=== PATIENT | female | born 2000 | race Caucasian/White ===

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

== ENCOUNTER 2020-01-26 22:30 | Emergency (ER) | payer OTHER ==
[~2020-01-26] VITALS: Ht 165.1 cm; Wt 59.0 kg
[2020-01-26 22:42] VITALS: BP 112/70
--- NOTE | 2020-01-26 22:45 | NUR ---
PT AMBULATED TO BED 1 WITH STEADY GAIT.
--- NOTE | 2020-01-26 22:50 | NUR ---
19 Y/O FEMALE PRESENTS TO ER WITH C/O FEVER, LBP, DYSURIA X 4 DAYS. 5/10 PAIN. PT IS 15 WEEKS , LMP 10/20. PT STATES SHE HAS HAD FEVER X 2 DAYS, AND NAUSEA, AND VOMITING FOR DURATION OF . BUT DENIES CHILLS, SOB, COUGH, HEADACHES, DIARRHEA OR KNOWN CONTACT WITH COVID POSITIVE PERSONS. R/R EQUAL, AND UNLABORED, VSS. SIDE RAIL X1, BED IN LOW POSITION, WILL CONTINUE TO MONITOR. DENIES PMH NKDA
[2020-01-26] MEDS ORDERED: ONDANSETRON 4 MG ODT PO ONE (23:05)
[2020-01-26] MEDS ORDERED: ACETAMINOPHEN 325 MG TAB PO ONE (23:05)
[2020-01-26 23:30] LABS: APPEARANCE,URINE CLOUDY (CLEAR); COLOR,URINE YELLOW (YELLOW)
[2020-01-26 23:31] LABS: BILIRUBIN,URINE NEGATIVE (NEGATIVE); BLOOD, URINE 2+ (NEGATIVE); LEUKOCYTE ESTERASE ,URINE 3+ (NEGATIVE); NITRITE, URINE POSITIVE (NEGATIVE); PH,URINE 6.5 (5.0-9.0); UGLUCOSE NEGATIVE (NEGATIVE)
[2020-01-26 23:32] LABS: WBC,URINE TOO MANY TO COUNT /HPF (0-5)
[2020-01-26] MEDS ORDERED: cefTRIAXone 1,000 MG in LIDOCAINE MPF 1% 2.1 ML IM ONE (23:45)
[2020-01-26] MEDS ORDERED: cefTRIAXone 1,000 MG VIAL ONE (23:58)
[2020-01-26] MEDS ORDERED: LIDOCAINE MPF 1% 5 ML ONE (23:59)
[2020-01-27 00:23] VITALS: BP 112/70
--- NOTE | 2020-01-27 00:23 | NUR ---
Patient discharged with v/s stable. Written and verbal after care instructions given and explained. Patient alert, oriented and verbalized understanding of instructions. Ambulatory with steady gait. All questions addressed prior to discharge. ID band removed. Patient advised to follow up with PMD. Rx of REGLAN, TYLENOL given. Patient educated on indication of medication including possible reaction and side effects. Opportunity to ask questions provided and answered.
== END 2020-01-27 00:23 | disposition home or self-care (01) ==
LOC: MED 22:30
DX: O23.42 Unspecified infection of urinary tract in pregnancy, second trimester (principal); Z3A.15 15 weeks gestation of pregnancy
CPT/HCPCS: 81001; 81025; 87086; 87186; 96372; 99283; J0696; J2001; Q0162

== ENCOUNTER 2020-03-28 07:45 | Observation (INO) | payer OTHER, SELFPAY ==
[~2020-03-28] VITALS: Ht 165.1 cm; Wt 63.5 kg
[2020-03-28 09:44] VITALS: BP 121/74
== END 2020-03-28 09:22 | disposition home or self-care (01) ==
LOC: MLD 07:45
PROVIDERS: ADMIT Obstetrics & Gynecology; ATTEND Obstetrics & Gynecology
DX: O26.892 Other specified pregnancy related conditions, second trimester (principal); R10.9 Unspecified abdominal pain; Z3A.24 24 weeks gestation of pregnancy
CPT/HCPCS: 59025; 81000; G0378

== ENCOUNTER 2020-05-24 21:17 | Inpatient (IN) | payer OTHER, SELFPAY ==
[~2020-05-24] VITALS: Ht 165.1 cm; Wt 66.2 kg
[2020-05-24] MEDS ORDERED: cefTRIAXone 1,000 MG VIAL ONE (22:11)
[2020-05-24] MEDS: ACETAMINOPHEN 325 MG TAB PO PRN (22:52)
[2020-05-24] MEDS: NACL 0.9% 1,000 ML IV SCH ×2 (22:53→23:27)
[2020-05-24 22:54] VITALS: BP 101/54
[2020-05-25] MEDS: ACETAMINOPHEN 325 MG TAB PO PRN ×2 (04:54→15:21)
[2020-05-25] MEDS ORDERED: ceFAZolin 1,000 MG VIAL ONE (06:11)
[2020-05-25] MEDS: NACL 0.9% 1,000 ML IV SCH (07:04)
[2020-05-25 08:29] LABS: BASOPHILS % (AUTO) 0.2 % (0.0-2.0); EOSINOPHILS % (AUTO) 0.1 % (0.0-4.0); HEMATOCRIT 29.3 % (36-48); HEMOGLOBIN 9.7 g/dL (12.0-16.0); LYMPHOCYTES # (AUTO) 1.3 K/uL (2.5-16.5); LYMPHOCYTES % (AUTO) 8.3 % (20.5-51.1); MEAN CORPUSCULAR HEMOGLOBIN 29 pg (27-31); MEAN CORPUSCULAR HGB CONC 33 g/dL (33-37); MEAN CORPUSCULAR VOLUME 88.6 fL (80-94); MONOCYTES # (AUTO) 1.7 K/uL (0.8-1.0); MONOCYTES % (AUTO) 10.8 % (1.7-9.3); NEUTROPHILS # (AUTO) 12.3 K/uL (1.8-7.7); NEUTROPHILS % (AUTO) 80.6 % (42.2-75.2); PLATELET COUNT (AUTO) 275 K/uL (140-450); RED BLOOD CELL COUNT(AUTO) 3.31 MIL/uL (4.20-5.40); RED CELL DISTRIBUTION WIDTH 14.4 % (11.6-13.7); WHITE BLOOD COUNT (AUTO) 15.3 K/uL (4.5-11.0)
[2020-05-25] MEDS: LACTATED RINGERS 1,000 ML IV SCH ×2 (08:48→16:49)
--- NOTE | 2020-05-25 08:54 | NUR ---
PATIENT HAS BEEN SCREENED AND CATEGORIZED LOW NUTRITION RISK. PATIENT WILL BE SEEN WITHIN 7 DAYS OF ADMISSION. 05/31/[address]
[2020-05-26] MEDS: ACETAMINOPHEN 325 MG TAB PO PRN (00:07)
[2020-05-26] MEDS: LACTATED RINGERS 1,000 ML IV SCH ×3 (02:00→13:05)
[2020-05-27] MEDS: LACTATED RINGERS 1,000 ML IV SCH (02:00)
== END 2020-05-27 14:45 | disposition home or self-care (01) | DRG 566 ==
LOC: MLD 21:17 → MFCC 23:04 → OBSVTOIN 05-25 06:46
PROVIDERS: ADMIT Obstetrics & Gynecology; ATTEND Obstetrics & Gynecology
DX: O23.03 Infections of kidney in pregnancy, third trimester (principal); Z20.828 Contact with and (suspected) exposure to other viral communicable diseases; Z3A.32 32 weeks gestation of pregnancy
CPT/HCPCS: G0378 ×9; 36415; 76770; 85025; J0690; J0696; J7060

== ENCOUNTER 2022-05-26 04:15 | Emergency (ER) | payer OTHER ==
[~2022-05-26] VITALS: Ht 165.1 cm; Wt 70.3 kg
--- NOTE | 2022-05-26 04:15 | NUR ---
pt to bed 03.
[2022-05-26 04:31] VITALS: BP 119/75
--- NOTE | 2022-05-26 04:43 | NUR ---
dawit pate gave report # of [id number]
[2022-05-26] MEDS ORDERED: IBUPROFEN 800 MG TAB PO ONE (04:50)
[2022-05-26] MEDS ORDERED: ACET-10509 PO (05:50)
[2022-05-26 06:53] VITALS: BP 112/62
--- NOTE | 2022-05-26 06:53 | NUR ---
Patient discharged with v/s stable. Written and verbal after care instructions given and explained. Patient verbalized understanding. Wheel Chair Assisted with to car. All questions addressed prior to discharge. Advised to follow up with PMD.
== END 2022-05-26 06:53 | disposition home or self-care (01) ==
LOC: MED 04:15
DX: S00.83XA Contusion of other part of head, initial encounter (principal); Y04.2XXA Assault by strike against or bumped into by another person, initial encounter; Y93.89 Activity, other specified; Y92.89 Other specified places as the place of occurrence of the external cause; Y99.8 Other external cause status
CPT/HCPCS: 70450; 70486; 99284